=== PATIENT | female | born 1990 | race Caucasian/White ===

== ENCOUNTER → 2023-08-08 13:59 | Outpatient (REF) | payer BC, SELFPAY | LOC: PNTC 13:59 | PROVIDERS: ATTENDING PHYSICIAN Obstetrics & Gynecology | DX: O09.529 Supervision of elderly multigravida, unspecified trimester (principal); O98.519 Other viral diseases complicating pregnancy, unspecified trimester; U07.1 COVID-19 | CPT/HCPCS: 76816 ==

== ENCOUNTER → 2023-09-05 13:56 | Outpatient (REF) | payer BC, SELFPAY | LOC: PNTC 13:56 | PROVIDERS: ATTENDING PHYSICIAN Obstetrics & Gynecology | DX: O98.519 Other viral diseases complicating pregnancy, unspecified trimester (principal); U07.1 COVID-19 | CPT/HCPCS: 76816 ==

== ENCOUNTER 2023-09-07 08:31 | Observation (INO) | payer BC, SELFPAY ==
[2023-09-07 08:46] VITALS: BMI 27.3
[2023-09-07] MEDS: LR 1000 IV ×2 (09:00→23:28)
[2023-09-07 09:33] LABS: % Basophils 0.4 % (0-2); % Eosinophils 0.3 % (0-6); % Lymphocytes 11.3 % (20.5-51.1); Absolute Basophils 0.1 10^3/uL (0-0.2); Absolute Immature Granulocytes 0.1 10^3/uL (0-0.05); Absolute Lymphocytes 1.4 10^3/uL (1.2-3.4); Absolute Monocytes 0.7 10^3/uL (0.1-0.6); Hematocrit 32.3 % (37.0-47.0); Hemoglobin 11.1 g/dL (12.0-16.0); Mean Corp Hgb Conc. 34.4 g/dL (33.0-37.0); Mean Corpuscular Hgb 28.2 pg (27.0-31.0); Mean Platelet Volume 10.5 fL (7.4-10.4); Nucleated Red Blood Cells % 0 %; Platelet Count 165 10^3/uL (130-400); Red Blood Cell Count 3.94 10^6/uL (4.20-5.40); Red Cell Dist. Width 12.9 % (11.5-14.5); White Blood Cell Count 12.4 10^3/uL (4.8-10.8)
[2023-09-07 09:40] LABS: Urine Albumin Negative (Neg - Trace); Urine Bilirubin Negative (Negative); Urine Character Clear (Clear); Urine Color Yellow; Urine Glucose Negative (Negative); Urine Ketone Negative (Negative); Urine Leukocyte Trace (Negative); Urine Nitrite Negative (Negative); Urine Occult Blood Negative (Negative); Urine Specific Gravity 1.005 (<1.030); Urine Urobilinogen Negative (Neg - 1+)
[2023-09-07 10:12] LABS: Blood Urea Nitrogen 7 mg/dl (7-17); Calcium 9.3 mg/dl (8.4-10.2); Carbon Dioxide 18 mmol/L (22-30); Chloride 106 mmol/L (98-107); Estimated Creatinine Clearance 109 ml/min; Glucose 98 mg/dl (70-99); Potassium 3.8 mmol/L (3.5-5.1); Sodium 133 mmol/L (135-145); eGFR > 60.00
[2023-09-07 10:24] LABS: Urine Red Blood Cell 0-2 /HPF (0-2)
[2023-09-07 10:46] VITALS: BP 111/68
[2023-09-07] MEDS: STERILE WATER FOR INJECTION 10 ML IV (14:02)
[2023-09-07] MEDS: ROCEPHIN 1000 MG IV (14:02)
[2023-09-07] MEDS: CELESTONE SOLUSPAN 2 MG IM (17:32)
--- NOTE | 2023-09-07 17:56 | W.PN.URO.CBU ---
Today's Communication / Plan
-
Discussed findings with patient and
Advise observation
There is no indication for urgent urologic intervention
Will see her again tomorrow morning
Assessment / Plan
-
Right flank pain in the setting of moderate right hydronephrosis and an absent right ureteral jet: due to either right ureteral stone or gravid uterus
Diagnosis
-
Date of Service: September 07, 2023
-
Patient Diagnosis:
Right flank pain
Bilateral hydronephrosis, absent right ureteral jet
Bilateral renal calculi
34 week intrauterine
---
Patient has a history of kidney stones dating to 2016. She has spontaneously passed stones twice (never recovered)
She presented today with right flank pain reminiscent of prior bouts of renal colic, but without the n/v
A renal and bladder US (personally reviewed) confirmed small stones bilaterally, right (moderate)> left hydronephrosis and the absence of a right ureteral jet
Patient has been more comfortable as the day has progressed
She has no fever or flu-like symptoms
Urinalysis does not suggest UTI
She has no gross hematuria
Subjective
-
Persistent, but much diminished right flank pain
Objective
-
Vital Signs
Temp Pulse Resp BP
97.9 F 91 18 111/68
09/07/23 10:46 09/07/23 10:46 09/07/23 10:46 09/07/23 10:46
Laboratory Results
09/07/23 09:10
09/07/23 09:10
Renal and bladder US and urinalysis results as noted above
Review of Systems
-
Constitutional: No Symptoms
Cardiac: No Symptoms
Abdomen/GI: Pain
: No Symptoms
Neurological: No Symptoms
Physical Exam
-
General - well developed, well nourished, no acute distress
Breathing unlabored
[2023-09-07] MEDS: LR IV ×12 (21:28→21:30)
[2023-09-08] MEDS: BENADRYL 50 MG IV (00:08)
[2023-09-08] MEDS: TYLENOL 1000 MG PO (00:08)
[2023-09-08] MEDS: PENICILLIN 110 UNITS IV (00:59)
[2023-09-08] MEDS: PENICILLIN IV ×6 (01:21→01:22)
[2023-09-08] MEDS: LR 1000 IV ×2 (03:36→10:05)
[2023-09-08] MEDS: PENICILLIN 55 UNITS IV ×3 (04:54→12:55)
[2023-09-08] MEDS: REGLAN 10 MG IV (05:02)
--- NOTE | 2023-09-08 10:05 | W.PN.URO.CBU ---
Today's Communication / Plan
-
Cleared for discharge from standpoint
Will follow up as outpatient
Assessment / Plan
-
Right flank pain in the setting of moderate right hydronephrosis and an absent right ureteral jet: due to either right ureteral stone or gravid uterus
Patient has required no narcotic. She is most comfortable on left side suggesting external compression of right ureter rather than right ureteralstone
Urine C&S negative
No fever
Diagnosis
-
Date of Service: September 08, 2023
-
Patient Diagnosis:
Right flank pain
Bilateral hydronephrosis, absent right ureteral jet
Bilateral renal calculi
34 week intrauterine
---
Patient has a history of kidney stones dating to 2017. She has spontaneously passed stones twice (never recovered)
She presented today with right flank pain reminiscent of prior bouts of renal colic, but without the n/v
A renal and bladder US (personally reviewed) confirmed small stones bilaterally, right (moderate)> left hydronephrosis and the absence of a right ureteral jet
Patient has been more comfortable with only intermittent RLQ discomfort as of 09/08/23
She has no fever or flu-like symptoms
Urinalysis does not suggest UTI
She has no gross hematuria
Objective
-
Vital Signs
Temp Pulse Resp BP
97.9 F 91 18 111/68
09/07/23 10:46 09/07/23 10:46 09/07/23 10:46 09/07/23 10:46
Laboratory Results
09/07/23 09:10
09/07/23 09:10
Review of Systems
-
Constitutional: No Symptoms
Respiratory: No Symptoms
Cardiac: No Symptoms
Abdomen/GI: Abdominal Pain
: No Symptoms
Neurological: No Symptoms
Physical Exam
-
General - well developed, well nourished, no acute distress
--- NOTE | 2023-09-08 11:50 | CON.NEO ---
Consultation
-
Date/Time Consultation Requested: 09/08/2023 @ 0900
Date/Time Consultation Performed: 09/08/2023 @ 1130
Requesting Provider: Antelmo
Performing Provider: Abigail
Reason for Consultation: labor
Consultation - Neonatology
Maternal Labs
Blood Type: O Positive
Antibody Screen: Negative
RPR: Nonreactive
Rubella: Immune
Hep B S Ag: Negative
Hep C: Negative
HIV: Nonreactive
Group B Strep: Unknown
Chlamydia/GC: Negative
Consult
Male expected. Mother and father present for the discussion.
Mother is a 35 yo at34+6 weeks gestation.
mother received one dose of betamethasone 09/07/2023
Points discussed at consult:
- Management at delivery including the possibility of CPAP/intubation/surfactant discussed
- Respiratory: RDS possibility with possibility of worsening for 24-48 hrs, management including CPAP/surfactant/ventilator support may be required
- Nutrition: Hypoglycemia, need for IV fluids, gradual feed advance, Gavage feeding, importance of colostrum feeding, initiation of expression of colostrum within 3-4 hours, availability of donor milk, safety fo donor milk etc. were discussed.
- Procedures: Intubation, CPAP, IV placement, blood tests, umbilical arterial or venous lines, gavage feedings were discussed
- CVS: possibility of PDA not discussed in detail at this time
- [employer]: increased risk for neurodevelopmental delays
- Jaundice possibility and need for phototherapy discussed
- Family Centered Care: Discussed FCC with emphasis on parental participation during sign off and during management rounds and is encouraged. Availability of martine eyes camera also discussed
Mom and Dad were given the opportunity to ask questions throughout and open invitation to call if any questions come as they absorb all the information given so far.
Face to Face Time
Total Qmbo-gr-Iokd Time (in Minutes): 30
Attending Furnace Packer: Jazmyn Hayes MD
[2023-09-08] MEDS: CELESTONE SOLUSPAN 2 MG IM (17:28)
== END 2023-09-08 18:41 | disposition home or self-care (01) ==
LOC: LDRP 08:31
PROVIDERS: ADMITTING PHYSICIAN Obstetrics & Gynecology
DX: O99.891 Other specified diseases and conditions complicating pregnancy (principal); N13.2 Hydronephrosis with renal and ureteral calculous obstruction; O60.03 Preterm labor without delivery, third trimester; Z3A.34 34 weeks gestation of pregnancy; Z87.442 Personal history of urinary calculi
CPT/HCPCS: 76770; 80048; 81003; 81015; 85025; 87070; 87086; G0378

== ENCOUNTER 2023-09-10 20:49 | Observation (INO) | payer BC, SELFPAY ==
[2023-09-10 21:36] VITALS: BP 108/69; BMI 27.3
[2023-09-10 22:20] LABS: Hematocrit 30.5 % (37.0-47.0); Hemoglobin 10.6 g/dL (12.0-16.0); Mean Corp Hgb Conc. 34.8 g/dL (33.0-37.0); Mean Corpuscular Hgb 28.4 pg (27.0-31.0); Mean Corpuscular Volume 81.8 fL (81.0-99.0); Mean Platelet Volume 10.5 fL (7.4-10.4); Platelet Count 187 10^3/uL (130-400); Red Blood Cell Count 3.73 10^6/uL (4.20-5.40); Red Cell Dist. Width 13.1 % (11.5-14.5); White Blood Cell Count 12.1 10^3/uL (4.8-10.8)
[2023-09-10 22:24] LABS: Urine Albumin Negative (Neg - Trace); Urine Bilirubin Negative (Negative); Urine Character Clear (Clear); Urine Color Yellow; Urine Glucose Negative (Negative); Urine Ketone Negative (Negative); Urine Leukocyte Trace (Negative); Urine Nitrite Negative (Negative); Urine Occult Blood 1+ (Negative); Urine Urobilinogen Negative (Neg - 1+); Urine pH 6.5 (5.0-9.0)
[2023-09-10 22:33] LABS: Urine Bacteria Few (Negative); Urine Red Blood Cell 0-2 /HPF (0-2); Urine Squamous Cell 0-2 /LPF (Few); Urine White Cell 0-2 /HPF (0-5)
== END 2023-09-11 12:34 | disposition home or self-care (01) ==
LOC: LDRP 20:49
PROVIDERS: ADMITTING PHYSICIAN Obstetrics & Gynecology
DX: O46.93 Antepartum hemorrhage, unspecified, third trimester (principal); Z3A.35 35 weeks gestation of pregnancy
CPT/HCPCS: 81003; 81015; 85027; 85460; 86850; 86900; 86901; G0378

== ENCOUNTER 2023-09-25 02:29 | Inpatient (IN) | payer BC, SELFPAY ==
[2023-09-25 02:41] VITALS: BP 141/76; BMI 27.5
[2023-09-25] MEDS: LR 1000 IV (03:00)
[2023-09-25 03:05] LABS: % Basophils 0.4 % (0-2); % Eosinophils 0.7 % (0-6); % Immature Granulocytes 1.3 % (0-0.5); % Lymphocytes 15.3 % (20.5-51.1); % Monocytes 7.4 % (1.7-9.3); % Neutrophils 74.9 % (42.2-75.2); Absolute Basophils 0.1 10^3/uL (0-0.2); Absolute Eosinophils 0.1 10^3/uL (0-0.7); Absolute Immature Granulocytes 0.2 10^3/uL (0-0.05); Absolute Lymphocytes 2.2 10^3/uL (1.2-3.4); Absolute Monocytes 1.1 10^3/uL (0.1-0.6); Absolute Neutrophils 10.6 10^3/uL (1.4-6.5); Hematocrit 35.7 % (37.0-47.0); Mean Corp Hgb Conc. 33.6 g/dL (33.0-37.0); Mean Corpuscular Hgb 27.3 pg (27.0-31.0); Mean Corpuscular Volume 81.3 fL (81.0-99.0); Nucleated Red Blood Cells % 0 %; Platelet Count 193 10^3/uL (130-400); Red Blood Cell Count 4.39 10^6/uL (4.20-5.40); Red Cell Dist. Width 13.4 % (11.5-14.5); White Blood Cell Count 14.2 10^3/uL (4.8-10.8)
[2023-09-25] MEDS: SUBLIMAZE 100 MCG EPIDURAL (03:46)
[2023-09-25] MEDS: FENTANYL/BUPIVACAINE 100 EPIDURAL (03:46)
[2023-09-25] MEDS: MOTRIN 600 MG PO ×2 (06:22→12:26)
[2023-09-25] MEDS: PITOCIN 30 UNITS/NSS 500 ML IV (07:08)
[2023-09-25] MEDS: SENOKOT-S 1 TABLET PO (15:50)
[2023-09-25] MEDS: TYLENOL 650 MG PO ×2 (15:50→20:10)
[2023-09-25] MEDS: ROXICODONE 5 MG PO (16:16)
[2023-09-25] MEDS: PRENATAL PLUS PO (19:14)
[2023-09-26] MEDS: MOTRIN 600 MG PO ×4 (00:35→19:51)
[2023-09-26] MEDS: PREPARATION H OINTMENT 1 APPLIC RECTAL (00:59)
[2023-09-26] MEDS: TYLENOL 650 MG PO ×4 (01:01→22:00)
[2023-09-26 05:51] LABS: Hematocrit 29.1 % (37.0-47.0)
[2023-09-26] MEDS: PRENATAL PLUS 1 TABLET PO (07:58)
[2023-09-26] MEDS: SENOKOT-S 1 TABLET PO (17:28)
[2023-09-27] MEDS: MOTRIN 600 MG PO (04:58)
[2023-09-27 15:00] LABS: Syphilis/T. pallidum Ab Reflex Negative (Negative)
== END 2023-09-27 11:39 | disposition home or self-care (01) | DRG 806 ==
LOC: LDRP 02:29
PROVIDERS: ADMITTING PHYSICIAN Obstetrics & Gynecology
PROC: 10D07Z8 Extraction of Products of Conception, Other, Via Natural or Artificial Opening (ICD-10-PCS; 2023-09-25)
PROC: 0KQM0ZZ Repair Perineum Muscle, Open Approach (ICD-10-PCS; 2023-09-25)
DX: O69.81X0 Labor and delivery complicated by cord around neck, without compression, not applicable or unspecified (principal); O22.43 Hemorrhoids in pregnancy, third trimester; Z37.0 Single live birth; O70.1 Second degree perineal laceration during delivery; O75.89 Other specified complications of labor and delivery; O90.81 Anemia of the puerperium; D64.9 Anemia, unspecified; O99.344 Other mental disorders complicating childbirth; F41.9 Anxiety disorder, unspecified; O99.892 Other specified diseases and conditions complicating childbirth; N20.0 Calculus of kidney; Z3A.37 37 weeks gestation of pregnancy; Z87.442 Personal history of urinary calculi
CPT/HCPCS: 85014; 85018; 85025; 86780; 86850; 86900; 86901

== ENCOUNTER → 2023-10-06 11:16 | Outpatient (REF) | payer BC, SELFPAY | LOC: RAD 11:16 | PROVIDERS: ATTENDING PHYSICIAN Specialist; FAMILY PHYSICIAN Physician Assistant Medical | DX: N20.0 Calculus of kidney (principal) | CPT/HCPCS: 74176 ==

== ENCOUNTER → 2023-10-12 13:42 | Outpatient (REF) | payer BC, SELFPAY ==
[2023-10-13 14:29] LABS: Urine Albumin Negative (Neg - Trace); Urine Bilirubin Negative (Negative); Urine Character Clear (Clear); Urine Color Yellow; Urine Glucose Negative (Negative); Urine Ketone Negative (Negative); Urine Leukocyte Negative (Negative); Urine Nitrite Negative (Negative); Urine Occult Blood Negative (Negative); Urine Urobilinogen Negative (Neg - 1+)
== END ==
LOC: CLAB 13:42
PROVIDERS: ATTENDING PHYSICIAN Nurse Practitioner Family
DX: R35.0 Frequency of micturition (principal)
CPT/HCPCS: 81003; 87086

== ENCOUNTER 2023-10-24 11:31 | Outpatient (RCR) | payer BC, SELFPAY | END 2023-10-24 23:59 | disposition home or self-care (01) | LOC: RPT 11:31 | PROVIDERS: ATTENDING PHYSICIAN Obstetrics & Gynecology | DX: R10.2 Pelvic and perineal pain (principal); K59.00 Constipation, unspecified; M62.89 Other specified disorders of muscle; Z73.6 Limitation of activities due to disability; O90.89 Other complications of the puerperium, not elsewhere classified | CPT/HCPCS: 97162; 97530 ==

== ENCOUNTER 2023-11-24 16:07 | Outpatient (RCR) | payer BC, SELFPAY | END 2023-11-24 23:59 | disposition home or self-care (01) | LOC: RPT 16:07 | PROVIDERS: ATTENDING PHYSICIAN Obstetrics & Gynecology | DX: R10.2 Pelvic and perineal pain (principal); K59.00 Constipation, unspecified; M62.89 Other specified disorders of muscle | CPT/HCPCS: 97110; 97140; 97530 ==

== ENCOUNTER 2023-12-13 11:08 | Outpatient (RCR) | payer BC, SELFPAY | END 2023-12-13 23:59 | disposition home or self-care (01) | LOC: RPT 11:08 | PROVIDERS: ATTENDING PHYSICIAN Obstetrics & Gynecology | DX: R10.2 Pelvic and perineal pain (principal); K59.00 Constipation, unspecified; M62.89 Other specified disorders of muscle; Z73.6 Limitation of activities due to disability; R26.89 Other abnormalities of gait and mobility | CPT/HCPCS: 97110; 97112; 97140 ==

== ENCOUNTER 2024-01-04 15:58 | Outpatient (RCR) | payer BC, SELFPAY | END 2024-01-06 09:46 | disposition home or self-care (01) | LOC: RPT 15:58 | PROVIDERS: ATTENDING PHYSICIAN Obstetrics & Gynecology | DX: R10.2 Pelvic and perineal pain (principal); K59.00 Constipation, unspecified; M62.89 Other specified disorders of muscle; Z73.6 Limitation of activities due to disability | CPT/HCPCS: 97140; 97530 ==

== ENCOUNTER → 2024-02-04 08:55 | Outpatient (REF) | payer BC, SELFPAY ==
[2024-02-04 10:30] LABS: % Basophils 1.2 % (0-2); % Eosinophils 1.6 % (0-6); % Immature Granulocytes 0.2 % (0-0.5); % Lymphocytes 32.9 % (20.5-51.1); % Monocytes 7.4 % (1.7-9.3); % Neutrophils 56.7 % (42.2-75.2); Absolute Basophils 0.1 10^3/uL (0-0.2); Absolute Eosinophils 0.1 10^3/uL (0-0.7); Absolute Lymphocytes 1.7 10^3/uL (1.2-3.4); Absolute Monocytes 0.4 10^3/uL (0.1-0.6); Absolute Neutrophils 2.9 10^3/uL (1.4-6.5); Hematocrit 39.8 % (37.0-47.0); Hemoglobin 13.5 g/dL (12.0-16.0); Mean Corp Hgb Conc. 33.9 g/dL (33.0-37.0); Mean Corpuscular Hgb 28.2 pg (27.0-31.0); Mean Corpuscular Volume 83.3 fL (81.0-99.0); Mean Platelet Volume 10.4 fL (7.4-10.4); Nucleated Red Blood Cells % 0 %; Platelet Count 216 10^3/uL (130-400); Red Blood Cell Count 4.78 10^6/uL (4.20-5.40); Red Cell Dist. Width 13.5 % (11.5-14.5)
[2024-02-04 10:42] LABS: ALT (SGPT) 16 U/L (0-35); AST (SGOT) 24 U/L (14-36); Albumin 4.8 g/dl (3.5-5.0); Alkaline Phosphatase 100 U/L (38-126); Blood Urea Nitrogen 12 mg/dl (7-17); Calcium 10.1 mg/dl (8.4-10.2); Carbon Dioxide 25 mmol/L (22-30); Chloride 107 mmol/L (98-107); Glucose 77 mg/dl (70-99); HDL Cholesterol 78 mg/dl; LDL Cholesterol, Calculated 66 mg/dl; Sodium 140 mmol/L (135-145); Total Bilirubin 2.3 mg/dl (0.2-1.3); Total Cholesterol 151 mg/dl (50-199); Total Protein 7.2 g/dl (6.3-8.2); Triglyceride 35 mg/dl (10-149); Very Low Density Lipoprotein 7 mg/dl (0-30); eGFR > 60.00
[2024-02-04 11:14] LABS: TSH 0.64 uIU/ml (0.47-4.68)
== END ==
LOC: REG 08:55
PROVIDERS: ATTENDING PHYSICIAN Physician Assistant Medical
DX: Z00.00 Encounter for general adult medical examination without abnormal findings (principal)
CPT/HCPCS: 36415; 80053; 80061; 84443; 85025

== ENCOUNTER → 2024-08-22 08:12 | Outpatient (REF) | payer BC, SELFPAY ==
[2024-08-22 09:41] LABS: % Basophils 0.8 % (0-2); % Eosinophils 0.8 % (0-6); % Immature Granulocytes 0.3 % (0-0.5); % Lymphocytes 26.6 % (20.5-51.1); % Monocytes 5.9 % (1.7-9.3); % Neutrophils 65.6 % (42.2-75.2); Absolute Basophils 0.1 10^3/uL (0-0.2); Absolute Eosinophils 0.1 10^3/uL (0-0.7); Absolute Lymphocytes 1.8 10^3/uL (1.2-3.4); Absolute Monocytes 0.4 10^3/uL (0.1-0.6); Absolute Neutrophils 4.3 10^3/uL (1.4-6.5); Hematocrit 43.4 % (37.0-47.0); Hemoglobin 14.5 g/dL (12.0-16.0); Mean Corp Hgb Conc. 33.4 g/dL (33.0-37.0); Mean Corpuscular Hgb 29.4 pg (27.0-31.0); Mean Corpuscular Volume 87.9 fL (81.0-99.0); Mean Platelet Volume 10.4 fL (7.4-10.4); Nucleated Red Blood Cells % 0 %; Platelet Count 236 10^3/uL (130-400); Red Blood Cell Count 4.94 10^6/uL (4.20-5.40); Red Cell Dist. Width 12.1 % (11.5-14.5); White Blood Cell Count 6.6 10^3/uL (4.8-10.8)
[2024-08-22 11:21] LABS: Albumin 5.2 g/dl (3.5-5.0); Blood Urea Nitrogen 12 mg/dl (7-17); Calcium 9.5 mg/dl (8.4-10.2); Carbon Dioxide 25 mmol/L (22-30); Chloride 100 mmol/L (98-107); Glucose 79 mg/dl (70-99); Phosphorus 3.2 mg/dl (2.5-4.5); Potassium 3.7 mmol/L (3.5-5.1); Sodium 138 mmol/L (135-145); eGFR > 60.00
[2024-08-22 11:43] LABS: TSH Reflex To Free T4 1.04 uIU/ml (0.47-4.68)
== END ==
LOC: RCS 08:12
PROVIDERS: ATTENDING PHYSICIAN Internal Medicine Cardiovascular Disease; FAMILY PHYSICIAN Physician Assistant Medical
DX: R00.2 Palpitations (principal); F41.9 Anxiety disorder, unspecified
CPT/HCPCS: 36415; 80069; 84443; 85025; 93225; 93226

== ENCOUNTER → 2024-08-29 09:07 | Outpatient (REF) | payer BC, SELFPAY | LOC: RCS 09:07 | PROVIDERS: ATTENDING PHYSICIAN Internal Medicine Cardiovascular Disease; FAMILY PHYSICIAN Physician Assistant Medical | DX: R00.2 Palpitations (principal); I47.10 Supraventricular tachycardia, unspecified; N20.0 Calculus of kidney | CPT/HCPCS: 81050; 93306 ==

== ENCOUNTER → 2024-10-31 12:32 | Outpatient (REF) | payer BC, SELFPAY | LOC: REG 12:32 | PROVIDERS: ATTENDING PHYSICIAN Physician Assistant Medical | DX: N76.0 Acute vaginitis (principal) | CPT/HCPCS: 87102; 87106 ==

== ENCOUNTER → 2025-01-31 06:43 | Outpatient (REF) | payer BC, SELFPAY ==
[2025-01-31 07:59] LABS: Hematocrit 40.1 % (37.0-47.0); Hemoglobin 13.4 g/dL (12.0-16.0); Mean Corp Hgb Conc. 33.4 g/dL (33.0-37.0); Mean Corpuscular Volume 88.7 fL (81.0-99.0); Nucleated Red Blood Cells % 0 %; Platelet Count 235 10^3/uL (130-400); Red Cell Dist. Width 12.1 % (11.5-14.5)
[2025-01-31 09:09] LABS: TSH 1.49 uIU/ml (0.47-4.68)
[2025-01-31 10:11] LABS: ALT (SGPT) 11 U/L (0-35); AST (SGOT) 20 U/L (14-36); Albumin 5.0 g/dl (3.5-5.0); Alkaline Phosphatase 58 U/L (38-126); Blood Urea Nitrogen 15 mg/dl (7-17); Calcium 9.7 mg/dl (8.4-10.2); Carbon Dioxide 25 mmol/L (22-30); Chloride 106 mmol/L (98-107); Glucose 83 mg/dl (70-99); HDL Cholesterol 59 mg/dl; LDL Cholesterol, Calculated 101 mg/dl; Potassium 4.4 mmol/L (3.5-5.1); Sodium 141 mmol/L (135-145); Total Protein 7.7 g/dl (6.3-8.2); Very Low Density Lipoprotein 11 mg/dl (0-30); eGFR > 60.00
== END ==
LOC: REG 06:43
PROVIDERS: ATTENDING PHYSICIAN Physician Assistant Medical
DX: Z00.00 Encounter for general adult medical examination without abnormal findings (principal)
CPT/HCPCS: 36415; 80053; 80061; 84443; 85025

== ENCOUNTER → 2025-02-08 10:01 | Outpatient (REF) | payer BC, SELFPAY | LOC: WDC 10:01 | PROVIDERS: ATTENDING PHYSICIAN Obstetrics & Gynecology; FAMILY PHYSICIAN Physician Assistant Medical | DX: N63.10 Unspecified lump in the right breast, unspecified quadrant (principal); N64.59 Other signs and symptoms in breast; N63.11 Unspecified lump in the right breast, upper outer quadrant | CPT/HCPCS: 76642; 77062; 77066 ==